=== PATIENT | male | born 1975 | race Caucasian/White ===

== ENCOUNTER 2023-10-14 12:37 | Emergency (ER) | payer BC, SELFPAY ==
[2023-10-14] VITALS (15 sets, daily range): BP systolic 214–217; BP diastolic 109–125; PULSE 77–98; RESP 20; TEMP 36.3; O2SAT 94–97; BMI 33.7
--- NOTE | 2023-10-14 12:59 | ED.GENADULT ---
HPI - General Adult General Chief complaint: Neuro Symptoms/Altered Deficit Stated complaint: facial drooping Time Seen by Provider: 10/14/23 12:47 History of Present Illness HPI narrative: Pt reports ear infection x1-2 weeks. On 10/09, pt noticed L side of face he could not move , does not remember most of the day when he was at work . On 10/10, pt went back to work and was fired, does not remember details/what happened or what happened on 10/09 that led to his firing. Was confusing details/memory issues for a few days. Feels as if brain fogginess has resolved as of yesterday. Pt still has L sided facial droop today. Pt has some on/ off throbbing pain in L side of head just posterior of ear that has been going on for several days. Was seen at and sent here today. 48-year-old man presenting to the emergency department with concern of drooping face. Over the last 1 or 2 weeks has had an ear ache. Thought maybe this would be related to wax or potential infection. This was on the left side. Notes a history of otitis. Five days ago was at work and noticed that was having trouble moving the left side of his face. Apparently there was an encounter at work where he demonstrated some frustration over schedule changes. He does not recall the details of this encounter but evidently he became angry to some degree. Went back the next day and was told that was fired. In conversation here in [place] does not seem to upset about that other than just not knowing what exactly happened. And that that information is not being given to him. Started to feel less foggy finally yesterday. More throbbing pain left side of his head can a behind little bit has been present for a few days. Presenting to the Urgent Care noting high blood pressure as well as drooping left face was directed to the emergency department with concern of CVA. No fever. No blisters. Acknowledges a history of borderline treatable blood pressures but has not been seen in years no really checked his blood pressure. No chest pain or shortness of breath. No abdominal pain. No peripheral weakness loss of sensation. Related Data Previous Rx's Medication Instructions Recorded amlodipine 5 mg tablet 5 mg PO DAILY #30 tabs 10/14/23 hydrochlorothiazide 12.5 mg capsule 12.5 mg PO DAILY #30 caps 10/14/23 prednisone 20 mg tablet 30 mg (1.5 x 20 mg) PO BID 7 days 10/14/23 #21 tabs valacyclovir 1 gram tablet 1,000 mg PO Q8H 7 days #21 tabs 10/14/23 white petrolatum-mineral oil 56.8 1 applic ophthalmic (eye) TID PRN 10/14/23 %-42.5 % eye ointment (Refresh #3.5 grams Lacri-Lube) Allergies Allergy/AdvReac Type Severity Reaction Status Date / Time No Known Drug Allergies Allergy Verified 10/14/23 11:51 Review of Systems Status of ROS: Reports: 6 or more systems reviewed and unremarkable except as noted in History and below PFSH [facility] Social History Smoking Status: Former smoker How often do you have a drink containing alcohol: never How often do you have six or more drinks on one occasion: Never AUDIT-C Alcohol total score: 0 Non-prescribed substance use: marijuana (any form) Exam Narrative: Exam Narrative: Pleasant. Appears relatively calm. Speaks easily. Bearded. Eyeglasses. Head is atraumatic. Quite noticeable is drooping of the left side of his face. No erythematous changes. The loss of motor is over the entire left face. Ears do not appear to have any inflammatory changes. Do remove some cerumen from the left ear for better visualization. Ultimately there is some moist cerumen up against the ear canal that is going to be too sensitive I think to remove. This might be some of what he is feeling in addition to the apparent [place]'s palsy. Neck is supple without lymphadenopathy. Oropharynx unremarkable. Lungs are clear. Heart in elevated rate regular rhythm. Cranial nerves 2-12 other than as noted above are intact. Pupils are 3 mm and equal and appropriately reactive. As noted extraocular movements are intact. Is able to close left eye with a little effort. Moving all extremities without difficulty. He is well-perfused. No edema. Good strength throughout. Const: Vital Signs, click to edit/add: Vital Signs - 24 hr 10/14/23 12:46 Temperature 97.3 F L Pulse Rate [Pulse Oximeter] 98 Respiratory Rate 20 Blood Pressure [Ri ght Upper Arm] 214/109 H Pulse Oximetry 96 Oxygen Delivery Me thod Room Air Documenting provider has reviewed patient's vital signs: yes Course Vital Signs Vital signs: Initial Vital Signs Temperature 97.3 F L 10/14/23 12:46 Temperature Source Temporal Artery Scan 10/14/23 12:46 Pulse Rate 98 10/14/23 12:46 Respiratory Rate 20 10/14/23 12:46 Blood Pressure 214/109 H 10/14/23 12:46 Blood Pressure Mean 144 H 10/14/23 12:46 Blood Pressure Position Sitting 10/14/23 12:46 Pulse Oximetry 96 10/14/23 12:46 Oxygen Delivery Method Room Air 10/14/23 12:46 Vital Signs Temperature 97.3 F L 10/14/23 12:46 Pulse Rate 98 10/14/23 12:46 Respiratory Rate 20 10/14/23 12:46 Blood Pressure 214/109 H 10/14/23 12:46 Pulse Oximetry 96 10/14/23 12:46 Oxygen Delivery Method Room Air 10/14/23 12:46 Temperature 97.3 F L 10/14/23 12:46 Pulse Rate 83 10/14/23 16:00 Respiratory Rate 20 10/14/23 12:46 Blood Pressure 217/125 H 10/14/23 15:59 Pulse Oximetry 96 10/14/23 16:00 Oxygen Delivery Method Room Air 10/14/23 12:46 Medical Decision Making MDM Narrative Medical decision making narrative: Seems to have experienced some sort of dissociation? Other stress reaction? Hypertensive encephalopathy? Clearly with Montana's palsy and some of his discomfort as described may have been related to this prodrome. Cerumen as noted is also related I think. Mastoiditis? Possible CVA but doubtful. Limited intervention possible anymore regardless. Would like to check basic labs partly related to this probably persistently elevated on checked blood pressure. Get baseline EKG. Discussed case with Neurology on-call. No other concerns. Proceeding with head CT. Offered IV hydration but he felt he could drink. CT reviewed by me looks to be WNL without acute abnormality. Radiology over-read as below INDICATION: Memory loss, hypertension, Montana`s palsy. TECHNIQUE: Noncontrast CT of the head with multiplanar reformat in bone and soft tissue algorithms. COMPARISON: None available. FINDINGS: No acute intracranial hemorrhage. The valdez-white matter interface is preserved. The ventricles are normal in size. The skull base and calvarium are within normal limits. Orbits are unremarkable. Paranasal sinuses and mastoid air cells are predominantly clear. IMPRESSION: No acute intracranial abnormality. No further events during extended time in the emergency department. No dysrhythmia/arrhythmia on monitor. I would like to initiate treatment for hypertension/hypertensive urgency. Discussed options. I think would likely benefit from 2 drug therapy. Discussed potential side effects of initiating amlodipine and hydrochlorothiazide. Considering the former in particular for both elevated systolic and diastolic pressures. Discussed also may be of limited benefit of initiating treatment for Montana's palsy. He would like to proceed. Easily ambulatory from the ER. See patient discharge plan Lab Data Lab results reviewed: Yes I reviewed the patient's lab results Labs: Lab Results 10/14/23 10/14/23 Range/Units 13:00 13:30 WBC 8.19 (4.50-11.00) K/uL RBC 5.69 (4.30-5.90) m/uL Hgb 16.2 (13.5-17.5) gm/dL Hct 47.7 (37.0-53.0) % MCV 84 (80-100) fL MCH 29 (26-34) pg MCHC 34 (32-36) gm/dL RDW Coeff of [place] 12.1 (11.5-15.5) % Plt Count 284 (140-440) K/uL Neut % (Auto) 61.2 (42.0-72.0) % Lymph % (Auto) 30.8 (20-44) % [place] % (Auto) 7.0 (0.0-11.0) % Eos % (Auto) 0.1 (0.0-7.0) % Baso % (Auto) 0.4 (0.0-3.0) % Neut # (Auto) 5.02 (1.7-7.0) K/uL Lymph # (Auto) 2.52 (0.90-2.90) K/uL [place] # (Auto) 0.60 (0.00-0.90) K/UL Eos # (Auto) 0.01 (0.00-0.50) K/uL Baso # (Auto) 0.03 (0.00-0.30) K/uL Abs Immat Gran (auto) 0.04 (0.00-0.30) K/uL Imm/Tot Granulo (auto) 0.5 % INR 0.91 (0.91-1.10) APTT 30 (23-33) Seconds Sodium 141 (135-149) mmol/L Potassium 3.9 (3.6-5.1) mmol/L Chloride 107 (96-114) mmol/L Carbon Dioxide 22 (20-32) mmol/L Anion Gap 12 (7-15) mEq/L BUN 12 (5-24) mg/dL Creatinine 0.8 (0.5-1.5) mg/dL Estimated Creat Clear 106.72 Estimated GFR 110 ml/min Glucose 124 H (60-115) mg/dL Calcium 9.5 (8.4-10.6) mg/dL Troponin I < 0.01 L (0.01-0.04) ng/mL NT-Pro-B Natriuret Pep 48 pg/mL Urine Color Yellow (Yellow) Urine Appearance Clear (Clear) Urine pH 6.0 (5.0-8.5) Ur Specific [place] 1.020 (1.000-1.030) Urine Protein Negative (Negative) Urine Glucose (UA) Negative (Negative) Urine Ketones Negative (Negative) Urine Blood Negative (Negative) Urine Nitrite Negative (Negative) Urine Bilirubin Negative (Negative) Urine Urobilinogen 0.2 (0.2-1.0) Ur Leukocyte Esterase Negative (Negative) Urine RBC 0-2 (0-2) Urine WBC 0-2 (0-5) Ur Squamous Epith Cells None (None-Few) Urine Bacteria None (None) ECG Data Attestation: I personally reviewed and interpreted this ECG as follows: (Normal sinus rhythm rate of 91. A little baseline irritability.) Discharge Plan Discharge Clinical Impression: Hypertensive urgency, [place]'s palsy, Memory loss Patient Disposition: Home, Self-Care Condition: Stable Additional Instructions: I would like to start you on 2 blood pressure medications of amlodipine and hydrochlorothiazide. Please follow-up within 2 weeks in primary care to recheck pressures and review residual symptoms from [place]'s palsy. Might be helpful, after period of rest, to check your blood pressure maybe 3 times a week. Return for new and focal weakness, severe headache, worsening loss of vision. While you can't blink very well, keep left eye moist with [id number] eye ointment which can be available generic or might try [id number] artificial tears. Be sure you place some before bedtime. I have written a prescription for something if you want. Prescriptions: New prednisone 20 mg tablet 30 mg PO BID 7 Days Qty: 21 0RF valacyclovir 1 gram tablet 1,000 mg PO Q8H 7 Days Qty: 21 0RF Refresh Lacri-Lube 56.8-42.5 % ointment 1 applic ophthalmic (eye) TID PRNQty: 3.5 1RF hydrochlorothiazide 12.5 mg capsule 12.5 mg PO DAILY Qty: 30 0RF amlodipine 5 mg tablet 5 mg PO DAILY Qty: 30 0RF Follow Up/Referrals: Wei Cronin MD [Primary Care Provider] - Stand Alone Forms: [employer] Info Instructions
[2023-10-14 13:17] LABS: Basophils Absolute Auto 0.03 K/uL (0.00-0.30); Basophils Percent Auto 0.4 % (0.0-3.0); Eosinophils Absolute Auto 0.01 K/uL (0.00-0.50); Eosinophils Percent Auto 0.1 % (0.0-7.0); Hematocrit 47.7 % (37.0-53.0); Hemoglobin* 16.2 gm/dL (13.5-17.5); Immature Granulocytes Abs Auto 0.04 K/uL (0.00-0.30); Immature Granulocytes Pct Auto 0.5 %; Lymphocytes Absolute Auto 2.52 K/uL (0.90-2.90); Lymphocytes Percent Auto 30.8 % (20-44); Mean Corpuscular HGB Conc 34 gm/dL (32-36); Mean Corpuscular Hemoglobin 29 pg (26-34); Mean Corpuscular Volume 84 fL (80-100); Neutrophils Absolute Auto 5.02 K/uL (1.7-7.0); Neutrophils Percent Auto 61.2 % (42.0-72.0); Platelet Count* 284 K/uL (140-440); RDW Coefficient of Variation % 12.1 % (11.5-15.5); Red Blood Count 5.69 m/uL (4.30-5.90); White Blood Count* 8.19 K/uL (4.50-11.00)
[2023-10-14 13:18] LABS: Slide Review Reflex No
[2023-10-14 13:29] LABS: Chloride* 107 mmol/L (96-114); Potassium* 3.9 mmol/L (3.6-5.1); Sodium* 141 mmol/L (135-149)
[2023-10-14 13:32] LABS: Anion Gap 12 mEq/L (7-15); Blood Urea Nitrogen* 12 mg/dL (5-24); Calcium* 9.5 mg/dL (8.4-10.6); Carbon Dioxide* 22 mmol/L (20-32); Creatinine* 0.8 mg/dL (0.5-1.5); Est. Creatinine Clearance* 106.72; Estimated Glomerular Filt Rate 110 ml/min; Glucose* 124 mg/dL (60-115)
[2023-10-14 13:46] LABS: NT Pro B Type NatriureticPept* 48 pg/mL; Troponin I* < 0.01 ng/mL (0.01-0.04)
[2023-10-14 13:48] LABS: Appearance Urine Clear (Clear); Bilirubin Urine Negative (Negative); Blood Urine Negative (Negative); Color Urine Yellow (Yellow); Glucose Urine Negative (Negative); Ketones Urine Negative (Negative); Leukocyte Esterase Urine Negative (Negative); Nitrite Urine Negative (Negative); Protein Urine Negative (Negative); Urobilinogen Urine 0.2 (0.2-1.0)
[2023-10-14 14:02] LABS: RBC Urine 0-2 (0-2); WBC Urine 0-2 (0-5)
[2023-10-14 14:03] LABS: INR 0.91 (0.91-1.10); Prothrombin Time 12.8 Seconds
[2023-10-14 14:04] LABS: Partial Thromboplastin Time* 30 Seconds (23-33)
--- NOTE | 2023-10-14 14:13 | CRLHL7_ITS ---
For Patients: As a result of the 21st Century Cures Act, medical imaging exams and procedure reports are released immediately into your electronic medical record. You may view this report before your referring provider. If you have questions, please contact your health care provider. INDICATION: Memory loss, hypertension, Montana`s palsy. TECHNIQUE: Noncontrast CT of the head with multiplanar reformat in bone and soft tissue algorithms. COMPARISON: None available. FINDINGS: No acute intracranial hemorrhage. The valdez-white matter interface is preserved. The ventricles are normal in size. The skull base and calvarium are within normal limits. Orbits are unremarkable. Paranasal sinuses and mastoid air cells are predominantly clear. IMPRESSION: No acute intracranial abnormality. Please note that all CT scans at this facility use dose modulation, iterative reconstruction, and/or weight-based dosing when appropriate to reduce radiation dose to as low as reasonably achievable. Dictated by Abiel Mancia MD @ 10/14/2023 2:52:41 PM (Electronically Signed)
--- NOTE | 2023-10-16 11:31 | ED.NURSE ---
Pt called stating his rx were not at pharmacy (sent 2 days ago). Called [facility] and verified all 5 rx were ready. Contacted Pt and informed that rx were ready to be picked up. No further questions from Pt.
== END 2023-10-14 16:24 | disposition home or self-care (01) ==
PROVIDERS: Emergency Provider Family Medicine; PCP Family Medicine
DX: I16.0 Hypertensive urgency (principal); G51.0 Bell's palsy
CPT/HCPCS: 36415; 70450; 80048; 81001; 83880; 84484; 85025; 85610; 85730; 93005; 94761; 99284; 99285

== ENCOUNTER 2025-03-10 10:06 | Outpatient (CLI) | payer OTHER, SELFPAY | END 2025-03-10 10:07 | disposition home or self-care (01) | PROVIDERS: PCP Family Medicine; Visit Provider Family Medicine | DX: Z00.00 Encounter for general adult medical examination without abnormal findings (principal); I10 Essential (primary) hypertension | CPT/HCPCS: 80048; 80061 ==